=== PATIENT | female | born 1935 | race Caucasian/White ===

== ENCOUNTER → 2016-07-04 | Outpatient (CLI) | payer MEDICARE, BC ==
[~2016-07-04] MED LIST: AMBIEN 5MG TABLE5 MG PO; AMBIEN5 MG PO; ASPIRIN E.C. 8181 MG PO; CALCIUM 500500 M1 PO; CALCIUM 600MG+D1 TAB PO; CALTRATE-600 W600 MG PO; CEFTIN500 MG PO; CELEBREX 200MG200 MG PO; CO Q-1050 MG PO; COSOPT EYE DROPS OS; DIOVAN HCT 12.51 TA2 PO; DIOVAN HCT 12.51 TAB PO; DIOVAN160 MG PO; FISH OIL1 IU PO; FISH OIL1000 MG PO; FLEXERIL10 MG PO; FLONASEALLERGY NS; FOSAMAX 70MG TA70 MG PO; GABAPENTIN300 M1 PO; GLUCOSAMINE/CHONDROI PO; LIPITOR 40MG TA40 MG PO; LIPITOR40 MG PO; LOPRESSOR100 MG PO; MICRO-K10 MEQ PO; NITROSTAT0.4 MG/TAB SL; ONE DAILY1 TA2 PO; OYSCO 500500 M1 PO; PAXIL 10MG10 MG PO; PYRIDIUM200 M1 PO; RELAFEN 50500 MG/TAB PO; SYNTHROID0.088 MG/T PO; SYNTHROID0.112 MG PO; TOPROL XL 50MG50 MG PO; TOPROL XL100 MG PO; TOPROL XL25 MG PO; TRAMADOL PO; TRAVATAN Z 2.52.5 ML OS; TYLENOL 325MG325 MG PO; ULTRAM ER100 MG PO; VITAMIN D31000 I1 PO; VITAMIN E100 I3 PO; ZITHROMAX Z PA250 MG PO; ZOFRAN 4MG T4 MG/TAB PO; ZYRTEC 10MG10 MG PO
== END ==
LOC: MC.RAD 11:10
DX: Z12.31 Encounter for screening mammogram for malignant neoplasm of breast (principal)

== ENCOUNTER → 2017-02-07 | Outpatient (CLI) | payer MEDICARE, BC | LOC: COL.RAD 10:10 | DX: M47.26 Other spondylosis with radiculopathy, lumbar region (principal); M43.17 Spondylolisthesis, lumbosacral region | CPT/HCPCS: A9585 ==

== ENCOUNTER → 2017-10-31 | Outpatient (CLI) | payer MEDICARE, BC | LOC: MC.RAD 13:39 | DX: Z12.31 Encounter for screening mammogram for malignant neoplasm of breast (principal) ==

== ENCOUNTER → 2017-12-12 | Outpatient (CLI) | payer MEDICARE, BC | LOC: COL.RAD 09:46 | DX: N28.1 Cyst of kidney, acquired (principal) ==

== ENCOUNTER 2019-01-19 14:07 | Emergency (ER) | payer OTHER, MEDICARE, BC ==
[~2019-01-19] VITALS: Ht 162.6 cm; Wt 72.7 kg
[2019-01-19 14:27] VITALS: TEMP 97.5
[2019-01-19 15:11] LABS: BASO # 0.1 (0.0-0.2); BASO % 0.7 % (0.0-2.0); EOS # 0.4 (0.0-0.7); EOS % 5.3 % (0-4.0); GRAN # 4.5 (1.4-6.5); GRAN % 64.9 % (42.2-75.2); HEMATOCRIT 38.6 % (37.0-47.0); HEMOGLOBIN 12.5 g/dl (12.5-16.0); LYMPH # 1.2 (1.2-3.4); LYMPH % 16.8 % (20.0-51.0); MEAN CELL VOLUME 97 fl (80.0-100.0); MEAN CORPUSCULAR HEMOGLOBIN 31 pg (27.0-31.0); MEAN CORPUSCULAR HGB CONC 32 g/dl (33.0-37.0); MEAN PLATELET VOLUME 10.2 fl (7.4-10.4); MONO # 0.8 (0.1-0.6); MONO % 11.9 % (1.7-9.3); PLATELET COUNT 189 K/mm3 (130-400); RED BLOOD COUNT 3.99 M/mm3 (4.10-5.30); REDCELL DISTRIBUTION WIDTH-CV 11.9 % (11.5-14.5)
[2019-01-19 15:24] LABS: ALANINE AMINOTRANSFERASE 28 U/L (9-52); ALBUMIN 4.3 gm/dL (3.5-5.0); ALKALINE PHOSPHATASE 83 U/L (50-136); ANION GAP 8 mmol/L (7-16); AST,SGOT 37 U/L (15-37); BILIRUBIN,TOTAL 0.6 mg/dL (0.0-1.0); BLOOD UREA NITROGEN 16 mg/dL (7-17); CALCIUM 9.7 mg/dL (8.4-10.2); CARBON DIOXIDE 29 mmol/L (22-30); CHLORIDE 101 mmol/L (98-107); GLUCOSE 94 mg/dL (74-106); POTASSIUM 3.8 mmol/L (3.4-5.0); SODIUM 138 mmol/L (137-145); TOTAL PROTEIN 7.7 gm/dL (6.4-8.2)
[2019-01-19 15:34] LABS: C-REACTIVE PROTEIN < 0.5 mg/dL (0.0-0.9); TROPONIN-I < 0.012 ng/mL (0.000-0.035)
[2019-01-19 18:20] VITALS: BP 150/88; PULSE 66
== END 2019-01-19 18:25 | disposition home or self-care (01) ==
LOC: COL.ER 14:07
PROVIDERS: Emergency Medicine
DX: R55 Syncope and collapse (principal); E78.00 Pure hypercholesterolemia, unspecified; I10 Essential (primary) hypertension; Z79.51 Long term (current) use of inhaled steroids
CPT/HCPCS: J7030

== ENCOUNTER → 2019-02-05 | Outpatient (CLI) | payer MEDICARE, BC | LOC: COL.CARD 12:42 | DX: R07.9 Chest pain, unspecified (principal); R55 Syncope and collapse ==

== ENCOUNTER 2019-02-26 08:11 | Outpatient (CLI) | payer MEDICARE, BC ==
[2019-02-26] MEDS ORDERED: COSOPT 2%-0.5%10 ML OU (08:59)
[2019-02-26] MEDS ORDERED: RT ADVAIR 228 DISKUS IH (08:59)
[2019-02-26] MEDS ORDERED: HYZAAR 50-12.1 UDTAB PO (09:04)
[2019-02-26] MEDS ORDERED: PROVENTIL0.09 MG/A1 IH (09:05)
[2019-02-26] MEDS ORDERED: PAXIL 10MG10 MG PO (09:06)
[2019-02-26] MEDS ORDERED: SPIRIVA RE2.5 MCG/Ac IH (09:07)
[2019-02-26] MEDS ORDERED: ZYRTEC 10MG10 MG PO (09:07)
[2019-02-26 09:21] VITALS: BP 150/90; PULSE 71
[2019-02-26] MEDS ORDERED: CEPHALEXIN500 M1 PO (09:40)
[2019-02-26 09:59] VITALS: BP 136/82; PULSE 56; TEMP 97.8
--- NOTE | 2019-02-26 10:15 | NUR ---
Discharge instructions given to pt.pt verbalizes understanding.Pt escorted out by Will allen.
== END 2019-02-26 10:54 | disposition home or self-care (01) ==
LOC: COL.CAR 08:11
DX: R55 Syncope and collapse (principal); M19.90 Unspecified osteoarthritis, unspecified site; I25.10 Atherosclerotic heart disease of native coronary artery without angina pectoris; E78.5 Hyperlipidemia, unspecified; I10 Essential (primary) hypertension; G47.33 Obstructive sleep apnea (adult) (pediatric); I08.0 Rheumatic disorders of both mitral and aortic valves; I49.3 Ventricular premature depolarization; Z87.891 Personal history of nicotine dependence; Z82.49 Family history of ischemic heart disease and other diseases of the circulatory system

== ENCOUNTER 2023-01-18 16:21 | Emergency (ER) | payer MEDICARE, BC ==
[~2023-01-18] VITALS: Ht 162.6 cm; Wt 62.7 kg
[~2023-01-18 16:21] MED LIST changes: +CEPHALEXIN500 M1 PO; +COSOPT 2%-0.5%10 ML OU; +HYZAAR 50-12.1 UDTAB PO; +PROVENTIL0.09 MG/A1 IH; +RT ADVAIR 228 DISKUS IH; +SPIRIVA RE2.5 MCG/Ac IH
[2023-01-18 16:28] VITALS: TEMP 98.6
[2023-01-18 17:42] LABS: BASO % 0.4 % (0.0-2.0); EOS # 0.2 K/mm3 (0.0-0.7); EOS % 2.5 % (0.0-4.0); GRAN # 5.2 K/mm3 (1.4-6.5); GRAN % 65.9 % (42.2-75.2); HEMATOCRIT 34.9 % (37.0-47.0); HEMOGLOBIN 11.2 g/dl (12.5-16.0); LYMPH # 1.4 K/mm3 (1.2-3.4); MEAN CELL VOLUME 97 fl (80.0-100.0); MEAN CORPUSCULAR HEMOGLOBIN 31 pg (27-31); MEAN CORPUSCULAR HGB CONC 32 g/dl (33.0-37.0); MEAN PLATELET VOLUME 10.8 fl (7.4-10.4); MONO % 12.9 % (1.7-9.3); PLATELET COUNT 144 K/mm3 (130-400); REDCELL DISTRIBUTION WIDTH-CV 12.6 % (11.5-14.5)
[2023-01-18 17:57] LABS: ALBUMIN 3.6 gm/dL (3.4-4.8); BILIRUBIN,TOTAL 0.6 mg/dL (0.2-1.2); CALCIUM 9.7 mg/dL (8.4-10.2); CREATININE, serum 0.87 mg/dL (0.57-1.11); POTASSIUM 3.3 mmol/L (3.5-4.5); TOTAL PROTEIN 7.1 gm/dL (6.2-8.1)
[2023-01-18 22:00] VITALS: BP 161/92; PULSE 78
== END 2023-01-18 22:20 | disposition home or self-care (01) ==
LOC: COL.ER 16:21
PROVIDERS: Emergency Medicine
DX: S12.190A Other displaced fracture of second cervical vertebra, initial encounter for closed fracture (principal); I25.10 Atherosclerotic heart disease of native coronary artery without angina pectoris; Z79.01 Long term (current) use of anticoagulants; Z87.891 Personal history of nicotine dependence; W01.0XXA Fall on same level from slipping, tripping and stumbling without subsequent striking against object, initial encounter
CPT/HCPCS: J7030; Q9967

== ENCOUNTER → 2023-11-07 | Outpatient (REF) | payer MEDICARE, BC ==
[2023-11-07 16:57] LABS: BASO % 0.3 % (0.0-2.0); EOS # 0.2 K/mm3 (0.0-0.7); EOS % 2.5 % (0.0-4.0); GRAN # 5.8 K/mm3 (1.4-6.5); HEMOGLOBIN 11.4 g/dl (12.5-16.0); LYMPH # 2.3 K/mm3 (1.2-3.4); LYMPH % 23.4 % (20.0-51.0); MEAN CELL VOLUME 92 fl (80.0-100.0); MEAN CORPUSCULAR HEMOGLOBIN 31 pg (27-31); MEAN CORPUSCULAR HGB CONC 33 g/dl (33.0-37.0); MEAN PLATELET VOLUME 10.5 fl (7.4-10.4); MONO # 1.3 K/mm3 (0.1-0.6); MONO % 13.3 % (1.7-9.3); PLATELET COUNT 219 K/mm3 (130-400); RED BLOOD COUNT 3.72 M/mm3 (4.10-5.30); REDCELL DISTRIBUTION WIDTH-CV 11.6 % (11.5-14.5)
[2023-11-07 17:00] LABS: HEMATOCRIT 34.3 % (37.0-47.0)
[2023-11-07 17:05] LABS: ERYTHROCYTE SEDIMENTATION RATE 59 mm/hr (0-30)
[2023-11-07 17:13] LABS: ALBUMIN 3.6 g/dL (3.4-4.8); BILIRUBIN,TOTAL 0.6 mg/dL (0.2-1.2); C-REACTIVE PROTEIN 11.85 mg/dL (0.00-0.50); CALCIUM 9.1 mg/dL (8.4-10.2); CREATININE, serum 0.92 mg/dL (0.57-1.11); POTASSIUM 3.2 mEq/L (3.5-4.5)
== END ==
LOC: ZCOL.LAB 16:39
PROVIDERS: Student in an Organized Health Care Education/Training Program
DX: R50.9 Fever, unspecified (principal); T78.40XA Allergy, unspecified, initial encounter

== ENCOUNTER → 2023-11-10 | Outpatient (CLI) | payer MEDICARE, BC ==
[2023-11-10 20:52] LABS: CALCIUM 9.6 mg/dL (8.4-10.2); CREATININE, serum 0.93 mg/dL (0.57-1.11); POTASSIUM 3.4 mEq/L (3.5-4.5)
== END ==
LOC: COL.LAB 16:00
PROVIDERS: Nurse Practitioner Family
DX: E87.1 Hypo-osmolality and hyponatremia (principal); T78.40XA Allergy, unspecified, initial encounter